=== PATIENT | male | born 1965 ===

== ENCOUNTER 2018-09-21 17:47 | Emergency (ER) | payer SELFPAY ==
[2018-09-21 18:03] VITALS: TEMP 98.9
--- NOTE | 2018-09-21 20:27 | C.PDOC ---
History Of Present Illness 53 year old male presents to ED with complaint of left shoulder pain for 3 for the past days after lifting a heavy object at work. Patient denies chest pain, SOB, numbness, and weakness. Time Seen by Provider: 09/21/18 18:19 Chief Complaint (Nursing): Upper Extremity Problem/Injury History Per: Patient History/Exam Limitations: no limitations Onset/Duration Of Symptoms: Days (3) Current Symptoms Are (Timing): Still Present Quality: "Pain" Past Medical History Reviewed: Historical Data, Nursing Documentation, Vital Signs Vital Signs: Last Vital Signs Temp 98.9 F 09/21/18 17:59 Pulse 92 H 09/21/18 17:59 Resp 20 09/21/18 17:59 BP 129/60 09/21/18 17:59 Pulse Ox 98 09/21/18 17:59 - Medical History PMH: No Chronic Diseases Surgical History: No Surg Hx Family History: States: Unknown Family Hx - Social History Hx Alcohol Use: No Hx Substance Use: No - Immunization History Hx Tetanus Toxoid Vaccination: Yes Hx Influenza Vaccination: No Hx Pneumococcal Vaccination: No Review Of Systems Constitutional: Negative for: Fever, Chills, Weakness Cardiovascular: Negative for: Chest Pain Respiratory: Negative for: Shortness of Breath Musculoskeletal: Positive for: Shoulder Pain (left) Neurological: Negative for: Weakness, Numbness, Dizziness Physical Exam - Physical Exam Appears: Non-toxic, No Acute Distress Skin: Normal Color, Warm, Dry Head: Atraumatic, Normacephalic Neck: Normal ROM, Supple Chest: Symmetrical, No Deformity Cardiovascular: Rhythm Regular, No Murmur Respiratory: No Accessory Muscle Use Gastrointestinal/Abdominal: Soft, No Tenderness Extremity: Tenderness (left anterior shoulder, decreased ROM, pain reproducible on adduction) Neurological/Psych: Oriented x3, Normal Speech, Normal Cognition ED Course And Treatment O2 Sat by Pulse Oximetry: 98 (in RA) - Other Rad left shoulder xray X-Ray: Interpreted by Me Interpretation: No fx, no dislocation, no lesions Progress Note: Patient given Toradol for pain. Left shoulder X-ray ordered for patient. Patient given arm sling and given recommended orthopedic follow up. . Re-evaluation. Patient feels better. Discussed results and plan with patient who expresses understanding. All questions answered and there is agreement with the plan to discharge home with instructions. Patient stable for discharge. Return if symptoms persist or worsen. Disposition - Disposition Referrals: Louis Avelar III, MD [Staff Provider] - Disposition: HOME/ ROUTINE Disposition Time: 20:24 Condition: STABLE Additional Instructions: Follow up with Orthopedist within 1-2 days. Return to Ed if feel worse. Prescriptions: Naproxen [Naprosyn] 1 tab PO BID PRN #25 tab PRN Reason: Pain Famotidine [Pepcid] 20 mg PO BID #20 tab traMADol [Ultram] 50 mg PO Q6 #10 Instructions: Shoulder Pain (DC) Forms: [employer] (Ecuadorean), Work Excuse Print Language: SLOVENIAN - Clinical Impression Clinical Impression: Shoulder sprain - PA / [employer] / Resident Statement MD/DO has reviewed & agrees with the documentation as recorded. (Zeinab Mitchell) - Scribe Statement The provider has reviewed the documentation as recorded by the Scribe (Zeinab Mitchell) All medical record entries made by the Scribe were at my direction and personally dictated by me. I have reviewed the chart and agree that the record accurately reflects my personal performance of the history, physical exam, medical decision making, and the department course for this patient. I have also personally directed, reviewed, and agree with the discharge instructions and disposition.
[2018-09-21 20:47] VITALS: BP 132/77; PULSE 88; RESP 18
[2018-09-21 21:28] VITALS: O2SAT 98
--- NOTE | 2018-09-22 09:09 | RAD ---
Date of service: 09/21/2018 PROCEDURE: Radiographs of the Left Shoulder HISTORY: pain after heavy lifting COMPARISON: No prior. FINDINGS: BONES: No fracture. JOINTS: . Glenohumeral and acromioclavicular arthro SOFT TISSUES: Normal. OTHER FINDINGS: Thoracic spondylosis. IMPRESSION: Glenohumeral and acromioclavicular joint arthrosis. No fracture or lytic lesion seen.
== END 2018-09-21 20:47 | disposition home or self-care (01) ==
LOC: C.ER 17:47
DX: S43.402A Unspecified sprain of left shoulder joint, initial encounter (principal); X50.0XXA Overexertion from strenuous movement or load, initial encounter; Y92.89 Other specified places as the place of occurrence of the external cause; Y99.0 Civilian activity done for income or pay
CPT/HCPCS: 73030; 96372; 99284; J1885